=== PATIENT | female | born 1990 | race Caucasian/White ===

== ENCOUNTER 2023-11-01 08:13 | Outpatient (CLI) | payer BC, SELFPAY ==
--- NOTE | 2023-11-01 08:31 | MR_ITS ---
WS: [id number] MR CERVICAL SPINE WO/W COMPARISON: None. HISTORY: MULTIPLE SCLEROSIS TECHNIQUE: Sagittal T1, T2 and T2 inversion recovery; axial T2, T2 gradient and fiesta. Post gadolini um imaging with fat saturation technique. FINDINGS:Straightening of the normal cervical lordosis. No high grade central canal narrowing. Cord s ignal is normal. No signal abnormalities within the cervical cord. No demyelinating lesions visualize d in the cervical cord. No significant cord atrophy. No abnormal gadolinium enhancement. C2-3: Spinal canal and foramen are patent. C3-4: Mild facet arthropathy. Mild RIGHT and no significant LEFT foraminal narrowing. C4-5: Mild osteophytic ridging. Mild RIGHT and no significant LEFT foraminal narrowing. Spinal canal is patent. C5-6: Mild osteophytic ridging. Mild facet arthropathy. Spinal canal and foramina are patent. C6-7: Mild uncovertebral joint hypertrophy. Spinal canal and foramen are patent. C7-T1: Mild LEFT foraminal narrowing. Spinal canal and RIGHT foramen are patent. MR/MR cervical spine wo/w [id number] IMPRESSION: 1. Straightening of the normal cervical lordosis. No high-grade central canal narrowing. Cord signal is normal. 2. No suspicious lesions or demyelinating lesions within the cervical cord. No abnormal gadolinium enhancement. 3. No significant cord atrophy. 4. Mild foraminal narrowing described above. 5. No other acute findings.
--- NOTE | 2023-11-01 08:31 | MR_ITS ---
WS: [id number] MRI HEAD WITHOUT AND WITH GADOLINIUM ENHANCEMENT TECHNIQUE: Sagittal T1, T2 axial, T2 axial FLAIR, axial susceptibility weighted imaging, axial diffus ion weighted images, and coronal T2 images were obtained. Pre and post-T1 axial and post T1 coronal i mages. ADC and FSPGR images. CLINICAL INFORMATION: MULTIPLE SCLEROSIS COMPARISON: None. FINDINGS: No evidence of restricted diffusion to suggest acute ischemia. Ventricular system and basal cisterns are patent. Single tiny nonspecific punctate focus of T2 hyperintensity in the RIGHT pericallosal whi te matter. No other suspicious intracranial signal abnormalities. Corpus callosum is otherwise normal in appearance. No corpus callosum atrophy. Normal posterior fossa. Normal vascular flow voids at the skull base. No extra-axial fluid collections. No evidence of mass or mass effect. Paranasal sinuses and mastoid air cells are well aerated. No hemosiderin on the susceptibility weighted images. Normal optic chiasm and pituitary infundibulum. Temporal lobes and hippocampal formations are normal in appearance. No abnormal gadolinium enhanceme nt. No enhancing intracranial lesions. Normal dural venous sinuses. MR/MR head wo/w con [id number] IMPRESSION: 1. Single tiny focus of T2 hyperintensity in the RIGHT pericallosal white anny er nonspecific in a patient of this age but can be seen with hypertension, diab etes, migraine headaches, and demyelinating disease. 2. No significant atrophy of the corpus callosum. 3. No hemosiderin on susceptibility-weighted images. 4. No other suspicious findings.
--- NOTE | 2023-11-01 08:31 | MR_ITS ---
WS: [id number] MRI ORBIT/FACE WITHOUT AND WITH GADOLINIUM ENHANCEMENT. TECHNIQUE: Sagittal T1, coronal STIR thin orbits, axial T2 thin, pre and post gadolinium imaging of t he orbits with fat saturation technique. CLINICAL INFORMATION: MULTIPLE SCLEROSIS COMPARISON: None. FINDINGS: Normal optic chiasm and pituitary infundibulum. Optic nerves are normal in appearance. No s ignificant optic nerve edema. No evidence of optic neuritis. No abnormal enhancement along the intrao rbital or prechiasmatic optic nerves. Normal cavernous sinuses and Meckel's cave. Normal rectus muscl es. No enhancement along the proximal IACs. Proximal 7th and 8th cranial nerves appear normal. MR/MR orbit face neck wo/w* [id number] IMPRESSION: 1. Normal optic chiasm and pituitary infundibulum. No evidence of optic nerve edema. 2. No evidence of optic neuritis. 3. No other suspicious findings.
== END 2023-11-01 08:14 | disposition home or self-care (01) ==
LOC: RAD 08:13
PROVIDERS: Visit Provider Physician Assistant
DX: G35 Multiple sclerosis (principal); M48.02 Spinal stenosis, cervical region
CPT/HCPCS: 70543; 70553; 72156; A9577

== ENCOUNTER → 2024-01-03 09:54 | Outpatient (BNVA) | payer BC, SELFPAY | PROVIDERS: Visit Provider Psychiatry & Neurology Neurology | DX: G35 Multiple sclerosis (principal); H47.20 Unspecified optic atrophy; R03.0 Elevated blood-pressure reading, without diagnosis of hypertension | CPT/HCPCS: 36415; 82652 ==